=== PATIENT | female | born 1980 | race Caucasian/White ===

== ENCOUNTER → 2019-10-30 07:53 | Outpatient (BNVA) | payer MEDICARE, MEDICAID, SELFPAY | PROVIDERS: Family Provider Family Medicine; Visit Provider Psychiatry & Neurology Psychiatry | DX: F31.11 Bipolar disorder, current episode manic without psychotic features, mild (principal) | CPT/HCPCS: 99205 ==

== ENCOUNTER 2019-11-15 15:19 | Outpatient (CLI) | payer MEDICARE, MEDICAID, SELFPAY ==
[2019-11-15 16:19] LABS: Basophils % 0.7 %; Eosinophils # 0.1 10^3/uL (0.0-0.8); Eosinophils % 1.4 %; Hematocrit 37.5 % (37.0-47.0); Hemoglobin 11.9 g/dL (11.5-15.3); Lymphocytes # 2.6 10^3/uL (0.8-4.8); Lymphocytes % 45.5 %; Mean Corpuscular HGB Conc 31.7 g/dL (30.0-36.0); Mean Corpuscular Hemoglobin 28.3 pg (28.0-34.0); Mean Corpuscular Volume 89.3 fL (81-99); Mean Platelet Volume 9.2 fL (7.4-10.4); Monocytes # 0.3 10^3/uL (0.2-0.9); Monocytes % 4.4 %; Neutrophils # 2.7 10^3/uL (1.8-7.7); Neutrophils % 47.8 %; Nucleated Red Blood Cells % 0 %; Platelet Count 264 10^3/cmm (130-400); Red Cell Distribution Width 14.6 % (12.1-15.1); White Blood Count 5.7 10^3/uL (4.0-10.0)
[2019-11-15 16:39] LABS: Estmated Average Glucose 143; Hemoglobin A1C 6.6 % (4.0-6.0)
[2019-11-15 16:42] LABS: Alanine Aminotransferase 15 U/L (0-33); Albumin Level 4.4 g/dL (3.5-5.2); Alkaline Phosphatase 66 IU/L (35-105); Anion Gap 15.3 (5-19); Aspartate Amino Transferase 14 U/L (0-32); Blood Urea Nitrogen 19 mg/dL (6-20); Calcium 9.2 mg/dL (8.5-10.5); Carbon Dioxide 24 mmol/L (22-29); Chloride 104 mmol/L (98-107); Chol HDL Ratio 5.77 mg/dL (0.0-4.40); Cholesterol 179 mg/dL (0-200); Globulin 2.6 g/dL (1.3-4.6); Glomerular Filtration Rate 70.1 mL/min (90-130); Glucose 131 mg/dL (65-115); HDL Cholesterol 31 mg/dL (60-100); Osmolality Calculated 286 mOsm/kg (285-295); Potassium 4.3 mmol/L (3.5-5.1); Sodium 139 mmol/L (136-145); Thyroid Stimulating Hormone 1.12 uIU/mL (0.27-4.20); Total Bilirubin 0.2 mg/dL (0.15-1.2); Triglycerides 466 mg/dL (0-150)
[2019-11-16 00:37] LABS: LDL Cholesterol Direct 106 mg/dL (0-100)
[2019-11-23 12:02] LABS: Alprazolam negative; Amphetamine negative; Barbiturates negative; Benzodiazepines POSITIVE; Cocaine Metabolites negative; Lorazepam negative; Marijuana(Tetrahydrocannabino) negative; N-desalkylflurazepam negative; Opiates negative; PCP (Phencyclidine) negative
== END 2019-11-15 15:20 | disposition home or self-care (01) ==
LOC: LAB 15:25
PROVIDERS: Family Provider Family Medicine; Visit Provider Psychiatry & Neurology Psychiatry
DX: Z03.89 Encounter for observation for other suspected diseases and conditions ruled out (principal); F31.11 Bipolar disorder, current episode manic without psychotic features, mild; F40.01 Agoraphobia with panic disorder; Z79.899 Other long term (current) drug therapy
CPT/HCPCS: 80053; 80061; 80307; 83036; 83721; 84443; 85025

== ENCOUNTER → 2019-11-29 08:01 | Outpatient (BNVA) | payer MEDICARE, MEDICAID, SELFPAY | PROVIDERS: Family Provider Family Medicine; Visit Provider Psychiatry & Neurology Psychiatry | DX: F34.9 Persistent mood [affective] disorder, unspecified (principal); G47.00 Insomnia, unspecified; F09 Unspecified mental disorder due to known physiological condition; E63.9 Nutritional deficiency, unspecified | CPT/HCPCS: 99214 ==

== ENCOUNTER → 2019-12-05 07:51 | Outpatient (BNVA) | payer MEDICARE, MEDICAID, SELFPAY | PROVIDERS: Family Provider Family Medicine; Visit Provider Psychiatry & Neurology Psychiatry | DX: F33.8 Other recurrent depressive disorders (principal) | CPT/HCPCS: 90832; 99214 ==

== ENCOUNTER → 2019-12-17 07:57 | Outpatient (BNVA) | payer MEDICARE, MEDICAID, SELFPAY | PROVIDERS: Family Provider Family Medicine; Visit Provider Psychiatry & Neurology Psychiatry | DX: F31.81 Bipolar II disorder (principal) | CPT/HCPCS: 99215 ==

== ENCOUNTER → 2019-12-27 08:02 | Outpatient (BNVA) | payer MEDICARE, MEDICAID, SELFPAY | PROVIDERS: Family Provider Family Medicine; Visit Provider Psychiatry & Neurology Psychiatry | DX: F31.81 Bipolar II disorder (principal) | CPT/HCPCS: 99212 ==

== ENCOUNTER → 2020-01-03 07:44 | Outpatient (BNVA) | payer MEDICARE, MEDICAID, SELFPAY | PROVIDERS: Family Provider Family Medicine; Visit Provider Psychiatry & Neurology Psychiatry | DX: F60.3 Borderline personality disorder (principal); F43.12 Post-traumatic stress disorder, chronic; F33.2 Major depressive disorder, recurrent severe without psychotic features; F40.01 Agoraphobia with panic disorder | CPT/HCPCS: 99214 ==

== ENCOUNTER → 2020-01-31 08:05 | Outpatient (BNVA) | payer MEDICARE, MEDICAID, SELFPAY | PROVIDERS: Family Provider Family Medicine; Visit Provider Psychiatry & Neurology Psychiatry | DX: F33.2 Major depressive disorder, recurrent severe without psychotic features (principal); F43.12 Post-traumatic stress disorder, chronic; F60.3 Borderline personality disorder | CPT/HCPCS: 99214 ==

== ENCOUNTER → 2020-03-05 08:24 | Outpatient (BNVA) | payer MEDICARE, MEDICAID, SELFPAY | PROVIDERS: Family Provider Family Medicine; Visit Provider Psychiatry & Neurology Psychiatry | DX: F33.2 Major depressive disorder, recurrent severe without psychotic features (principal); F60.3 Borderline personality disorder; F43.12 Post-traumatic stress disorder, chronic; F40.01 Agoraphobia with panic disorder | CPT/HCPCS: 99214 ==

== ENCOUNTER → 2020-04-02 18:00 | Outpatient (BNVA) | payer MEDICARE, SELFPAY | PROVIDERS: Family Provider Family Medicine; Visit Provider Family Medicine | DX: J44.9 Chronic obstructive pulmonary disease, unspecified (principal); Z13.6 Encounter for screening for cardiovascular disorders; Z86.19 Personal history of other infectious and parasitic diseases | CPT/HCPCS: 80053; 80061; 85025; 87522 ==

== ENCOUNTER → 2020-04-09 07:49 | Outpatient (BNVA) | payer MEDICARE, MEDICAID, SELFPAY | PROVIDERS: Family Provider Family Medicine; Visit Provider Psychiatry & Neurology Psychiatry | DX: F33.2 Major depressive disorder, recurrent severe without psychotic features (principal); F43.12 Post-traumatic stress disorder, chronic; F60.3 Borderline personality disorder; F40.01 Agoraphobia with panic disorder | CPT/HCPCS: 99213 ==

== ENCOUNTER → 2020-05-14 15:47 | Outpatient (BNVA) | payer MEDICARE, MEDICAID, SELFPAY | PROVIDERS: Family Provider Family Medicine; Referring Provider Registered Nurse; Visit Provider Registered Nurse | DX: E78.2 Mixed hyperlipidemia (principal); Z79.899 Other long term (current) drug therapy | CPT/HCPCS: 80061; 83036 ==

== ENCOUNTER → 2020-06-30 08:53 | Outpatient (BNVA) | payer MEDICARE, MEDICAID, SELFPAY ==
[2020-05-30 13:55] VITALS: BP 124/68; BMI 36.9
== END ==
PROVIDERS: Family Provider Family Medicine; Visit Provider Psychiatry & Neurology Psychiatry
DX: F60.3 Borderline personality disorder (principal); F43.12 Post-traumatic stress disorder, chronic; F33.2 Major depressive disorder, recurrent severe without psychotic features
CPT/HCPCS: 99213

== ENCOUNTER → 2020-09-22 07:35 | Outpatient (BNVA) | payer MEDICARE, MEDICAID, SELFPAY ==
[2020-05-30 13:55] VITALS: BP 124/68; BMI 36.9
== END ==
PROVIDERS: Family Provider Family Medicine; Visit Provider Psychiatry & Neurology Psychiatry
DX: F60.3 Borderline personality disorder (principal); F43.12 Post-traumatic stress disorder, chronic; F33.2 Major depressive disorder, recurrent severe without psychotic features; F40.01 Agoraphobia with panic disorder
CPT/HCPCS: 99213

== ENCOUNTER → 2020-10-13 10:02 | Outpatient (BNVA) | payer MEDICARE, SELFPAY ==
[2020-05-30 13:55] VITALS: BP 124/68; BMI 36.9
== END ==
PROVIDERS: Family Provider Family Medicine; Visit Provider Family Medicine
DX: Z12.4 Encounter for screening for malignant neoplasm of cervix (principal); Z12.39 Encounter for other screening for malignant neoplasm of breast
CPT/HCPCS: 88175; 99214

== ENCOUNTER → 2020-12-17 12:39 | Outpatient (BNVA) | payer MEDICARE, MEDICAID, SELFPAY ==
[2020-05-30 13:55] VITALS: BP 124/68; BMI 36.9
== END ==
PROVIDERS: Family Provider Family Medicine; PCP Family Medicine; Visit Provider Psychiatry & Neurology Psychiatry
DX: F60.3 Borderline personality disorder (principal); F43.12 Post-traumatic stress disorder, chronic; F33.2 Major depressive disorder, recurrent severe without psychotic features; F40.01 Agoraphobia with panic disorder
CPT/HCPCS: 99214

== ENCOUNTER → 2021-03-16 07:40 | Outpatient (BNVA) | payer MEDICARE, MEDICAID, SELFPAY ==
[2020-05-30 13:55] VITALS: BP 124/68; BMI 36.9
== END ==
PROVIDERS: Family Provider Family Medicine; PCP Family Medicine; Visit Provider Psychiatry & Neurology Psychiatry
DX: F60.3 Borderline personality disorder (principal); F43.12 Post-traumatic stress disorder, chronic; F33.2 Major depressive disorder, recurrent severe without psychotic features; F40.01 Agoraphobia with panic disorder; A49.02 Methicillin resistant Staphylococcus aureus infection, unspecified site
CPT/HCPCS: 99214

== ENCOUNTER → 2021-03-24 15:43 | Outpatient (BNVA) | payer MEDICARE, MEDICAID, SELFPAY ==
[2020-05-30 13:55] VITALS: BP 124/68; BMI 36.9
== END ==
PROVIDERS: Family Provider Family Medicine; PCP Family Medicine; Visit Provider Family Medicine
DX: E78.2 Mixed hyperlipidemia (principal); R73.03 Prediabetes; E78.5 Hyperlipidemia, unspecified; M62.830 Muscle spasm of back; E66.9 Obesity, unspecified; M62.838 Other muscle spasm; F33.2 Major depressive disorder, recurrent severe without psychotic features; Z72.0 Tobacco use; Z86.19 Personal history of other infectious and parasitic diseases
CPT/HCPCS: 80053; 80061; 83036

== ENCOUNTER → 2021-08-11 12:30 | Outpatient (BNVA) | payer MEDICARE, MEDICAID, SELFPAY ==
[2021-04-21 13:27] VITALS: BP 137/86
== END ==
PROVIDERS: Family Provider Family Medicine; PCP Family Medicine; Visit Provider Psychiatry & Neurology Psychiatry
DX: F60.3 Borderline personality disorder (principal); F43.12 Post-traumatic stress disorder, chronic; F33.2 Major depressive disorder, recurrent severe without psychotic features
CPT/HCPCS: 99214; 99213

== ENCOUNTER → 2022-11-10 09:08 | Outpatient (BNVA) | payer MEDICARE, MEDICAID, SELFPAY ==
[2021-04-21 13:27] VITALS: BP 137/86
== END ==
PROVIDERS: Family Provider Family Medicine; PCP Family Medicine; Visit Provider Family Medicine
DX: F33.2 Major depressive disorder, recurrent severe without psychotic features (principal); F31.11 Bipolar disorder, current episode manic without psychotic features, mild; E78.2 Mixed hyperlipidemia; Z13.1 Encounter for screening for diabetes mellitus; Z51.81 Encounter for therapeutic drug level monitoring; Z79.899 Other long term (current) drug therapy
CPT/HCPCS: 80053; 80061; 83036; 85025